=== PATIENT | female | born 1985 | race African-American/Black ===

== ENCOUNTER 2017-12-05 08:53 | Emergency (ER) | payer OTHER ==
[~2017-12-05] VITALS: Ht 170.2 cm; Wt 64.9 kg
[~2017-12-05 08:53] MED LIST: ACETAMINOPHEN325 M2 PO; BACTRIM DS TAB1 EACH PO; COLACE 100 MG100 MG PO; CYCLOBENZAPRINE10 MG PO; DERMOPLAST SPRAY TOP; FERROUSUL325 MG PO; FLAGYL500 MG PO; HYDROCORTISONE 1% TOP; IBUPROFEN 800800 M1 PO; IBUPROFEN 800800 MG PO; IBUPROFEN PO; LANSINOH 60 GM60 GM TOP; NOHOMEMEDICATIONS; NORCO 5-325 TA1 EACH PO; SENOKOT-S TABL1 EACH PO; TUCKS MEDICATE1 EAC1 TP; [UNRECOGNIZED DRUG - OTHER]
[2017-12-05 09:06] LABS: URINE BILIRUBIN NEGATIVE (Negative); URINE BLOOD NEGATIVE (Negative); URINE CLARITY CLEAR; URINE COLOR YELLOW; URINE GLUCOSE-RANDOM* NEGATIVE (Negative); URINE KETONES NEGATIVE (Negative); URINE LEUKOCYTES NEGATIVE (Negative); URINE NITRITE NEGATIVE (Negative); URINE PROTEIN (DIPSTICK) NEGATIVE (Negative); URINE UROBILINOGEN 0.2 E.U./dl (0.2-1.0)
[2017-12-05] MEDS ORDERED: PEPCID20 MG PO (09:50)
[2017-12-05] MEDS ORDERED: CARAFATE 1 GM TA1 G1 PO (09:50)
[2017-12-05] MEDS ORDERED: FLAGYL500 MG PO (09:59)
== END 2017-12-05 10:02 | disposition home or self-care (01) ==
LOC: ER 08:53
PROVIDERS: Physician Assistant
DX: K29.70 Gastritis, unspecified, without bleeding (principal); N76.0 Acute vaginitis